=== PATIENT | male | born 1980 | race African-American/Black ===

== ENCOUNTER 2019-09-20 16:51 | Emergency (ER) | payer OTHER ==
[~2019-09-20] VITALS: Ht 177.8 cm; Wt 72.6 kg
[2019-09-20] MEDS ORDERED: NORCO 5-325 TA1 EAC1 PO (18:29)
[2019-09-20 18:46] VITALS: BP 146/97
== END 2019-09-20 18:53 | disposition home or self-care (01) ==
LOC: ER 16:51
DX: M25.561 Pain in right knee (principal); J45.909 Unspecified asthma, uncomplicated; F17.290 Nicotine dependence, other tobacco product, uncomplicated; Z88.2 Allergy status to sulfonamides; Z88.6 Allergy status to analgesic agent